=== PATIENT | female | born 1995 | race Caucasian/White ===

== ENCOUNTER 2020-12-10 10:50 | Inpatient (IN) | payer OTHER ==
[~2020-12-10] VITALS: Ht 167.6 cm; Wt 91.3 kg
[2020-12-11] VITALS (68 sets, daily range): BP systolic 99–111; BP diastolic 49–78; PULSE 118–125; TEMP 89.5–99; O2SAT 88–100
--- NOTE | 2020-12-11 09:35 | NUR ---
Initial visit; Patient thanked Extrusion Technician for looking in on her and offering comfort and prayer. Extrusion Technician will follow up.
[2020-12-11 23:04] LABS: CREATININE, serum 0.67 (0.52-1.25); POTASSIUM 3.6 mmol/L (3.4-5.0)
[2020-12-11 23:05] LABS: ALBUMIN 2.8 gm/dL (3.5-5.0); BILIRUBIN,TOTAL 1.6 mg/dL (0.0-1.0); MAGNESIUM 1.7 mg/dL (1.6-2.3); TOTAL PROTEIN 5.7 gm/dL (6.4-8.2)
--- NOTE | 2020-12-11 23:11 | NUR ---
Patient arrived around 2119. She had a temperature of 98.8, HR 131 and BP is 98/55, she complained of chest pain but said its because of gas. She stated she hasn't had a bowel movement in four/five days. I called Iva SHOE PATTERNMAKER and she ordered ducolax, IV fluids, EKG, Potassium and MAG.
[2020-12-11 23:14] LABS: AMYLASE 55 U/L (30-110); LIPASE 25 U/L (23-300)
[2020-12-11 23:26] LABS: INR 1.4 (0.8-3.0); PROTHROMBIN TIME 16.2 SECONDS (9.7-12.8)
[2020-12-11 23:31] LABS: TROPONIN-I < 0.012 ng/mL (0.000-0.035)
--- NOTE | 2020-12-11 23:50 | NUR ---
The Patient starting desating to the low 90's/89 and I put 1 L 02 Nasal cannula on. The same time Iva SAN came in the room to assess the patient. The patient complained of chest pains but she said she thinks its related to gas becasuse she hasn't had a bowel movement in 4-5 days. Iva CALHOUN suggested we do a CT of the abdomen and pelvis and a [address] was negative and showed "surgical changes" and perhaps a small ileus. I confirmed with Iva CALHOUN that if in the event I needed to give the patient any PO meds it would be a problem. She stated its fine with small sips of water. The 12 leak EKG was also unremarkable showing Sinus Tachycardia. We did a D-Dimer and Fibrinogen and the results were 3824 and 928, respectively. We did 40 MEq of Potassium and 2g of Magnesium.
[2020-12-12] VITALS (785 sets, daily range): BP systolic 88–129; BP diastolic 68–91; PULSE 110–139; TEMP 98.2–99.9; O2SAT 81–100
[2020-12-12 05:03] LABS: HEMATOCRIT 26.6 % (37.0-47.0); HEMOGLOBIN 8.1 g/dl (12.5-16.0); MEAN CELL VOLUME 82 fl (80.0-100.0); MEAN CORPUSCULAR HEMOGLOBIN 25 pg (27.0-31.0); MEAN CORPUSCULAR HGB CONC 31 g/dl (33.0-37.0); MEAN PLATELET VOLUME 8.6 fl (7.4-10.4); PLATELET COUNT 363 K/mm3 (130-400); RED BLOOD COUNT 3.25 M/mm3 (4.10-5.30); REDCELL DISTRIBUTION WIDTH-CV 14.9 % (11.5-14.5)
[2020-12-12 05:15] LABS: ALBUMIN 2.6 gm/dL (3.5-5.0); BILIRUBIN,TOTAL 1.7 mg/dL (0.0-1.0); CALCIUM 7.8 mg/dL (8.4-10.2); CREATININE, serum 0.69 (0.52-1.25); POTASSIUM 4.6 mmol/L (3.4-5.0); TOTAL PROTEIN 5.3 gm/dL (6.4-8.2)
--- NOTE | 2020-12-12 06:21 | NUR ---
The patient is resting and current vitals are HR 105, 02 Saturation is 99 on room air, RR is 14, and current blood pressure is 109/68. I gave her a percocet and a ducolax supository. She is passing gas but hasn't had a bowel movement yet. She states her pain is a 2 out of 10. This morning's Potassium is 4.6. The output from the DEXTER drain was 60. NS is still running at 150 ml/hr. The patient is sleeping.
[2020-12-12 07:52] LABS: PATHOLOGY DIFF REVIEW OK
[2020-12-12] MEDS ORDERED: PERCOCET 325 MG1 TA2 PO (07:55)
[2020-12-12] MEDS ORDERED: MIRALAX PA17 GM/Dose PO (08:03)
[2020-12-12] MEDS ORDERED: IBU800 M1 PO (08:04)
--- NOTE | 2020-12-12 08:57 | NUR ---
Assessment complete and charted. Patient rating pain 01/25. Percocet due at 0915. Per Dr. Beavers patient to ambulate this AM to help relief of gas pains. Patient denied needs at time of assessment. Call light in reach.
--- NOTE | 2020-12-12 09:39 | NUR ---
Follow-up; Patient resting, Glass Etcher left a prayer card for Nurse to take in to [facility] when she awakens.
--- NOTE | 2020-12-12 09:48 | NUR ---
Rated pain 5/10 in ABD. Passing flatus. Provided with PRN percocet.
--- NOTE | 2020-12-12 12:10 | NUR ---
Patient reporting 5/10 ABD pain. Requested PRN morphine. MARIA ANTONIA Yeager in room to place PICC. Proivded morphine to patient.
--- NOTE | 2020-12-12 13:06 | NUR ---
Primary Therapist met with patient to discuss discharge planning. Patient lives on [address] with her , David (ph#[phone]) and their three children ages eleven, six, and two. Patient receives primary care and her medications from [facility]. Patient does not use any DME and is independent with ADLS. Patient does not have Advance Directives and states she plans to return home upon discharge. SW will continue to follow.
[2020-12-12 14:55] LABS: ALBUMIN 3.2 gm/dL (3.5-5.0); BILIRUBIN,TOTAL 0.5 mg/dL (0.0-1.0); C-REACTIVE PROTEIN 25.5 mg/dL (0.0-0.9); CALCIUM 8.5 mg/dL (8.4-10.2); CREATININE, serum 0.79 (0.52-1.25); POTASSIUM 3.7 mmol/L (3.4-5.0); TOTAL PROTEIN 6.3 gm/dL (6.4-8.2)
--- NOTE | 2020-12-12 15:35 | NUR ---
Patient returned to bed at this time. Patient pulse 130s-140s. Patient voices concern/upset regarding current family fued. Reports /mother/sister fighting and constantly calling. Requested this nurse to give sister an update over phone. Patient called sister and update given to sister. Patient educated to rest and emotional support provided. Given pain medication for 6/10 ABD and left shoulder pains. Will closely monitor pulse and if continues to be elevated after relaxation/pain meds will notify physician.
--- NOTE | 2020-12-12 16:06 | NUR ---
Spoke with Dr. Thorpe regarding patient pulse currently 130s. Per Dr. Thorpe, okay with pulse currently. Notify if above 150.
--- NOTE | 2020-12-12 19:18 | NUR ---
Report given to MARIA ANTONIA Sanchez
--- NOTE | 2020-12-12 20:30 | NUR ---
Assessment complete; patient slightly drowsy but alert and oriented. Reports 5/10 sharp abdominal pain. Will administer PRN pain medication. Re-enforced education regarding use of insentive spirometer to help prevent pneumonia. Patient reports understanding. Call light left within reach; will continue to monitor.
--- NOTE | 2020-12-12 23:19 | NUR ---
Patient developed a temperature of 102.4. Dr. Long notified. Patient is close to upper limit of 24 hour acetaminophen dose. Received ok to give Tylenol at this time. Also reported that laboratory director recently called and reported blood cultures have grown gram positive cocci. farm operations technical director would call back when the organism has been isolated.
--- NOTE | 2020-12-12 23:59 | NUR ---
Blood cultures are growing gram postiive cocci; Currently on 1gm Ertapenam q24hr. Morena nurse notified; awaiting further orders.
[2020-12-13] VITALS (412 sets, daily range): BP systolic 107–122; BP diastolic 65–79; PULSE 104–145; TEMP 98.2–102.2; O2SAT 90–100
[2020-12-13 00:19] LABS: HEMOGLOBIN 8.7 g/dl (12.5-16.0); MEAN CORPUSCULAR HEMOGLOBIN 25 pg (27.0-31.0); RED BLOOD COUNT 3.43 M/mm3 (4.10-5.30)
[2020-12-13 00:20] LABS: HEMATOCRIT 27.7 % (37.0-47.0); MEAN CELL VOLUME 81 fl (80.0-100.0); MEAN CORPUSCULAR HGB CONC 31 g/dl (33.0-37.0); MEAN PLATELET VOLUME 8.6 fl (7.4-10.4); PLATELET COUNT 462 K/mm3 (130-400); REDCELL DISTRIBUTION WIDTH-CV 14.7 % (11.5-14.5)
[2020-12-13 00:20] LABS: HEMOGLOBIN 9.6 g/dl (12.5-16.0); MEAN CELL VOLUME 83 fl (80.0-100.0); MEAN CORPUSCULAR HEMOGLOBIN 26 pg (27.0-31.0); MEAN CORPUSCULAR HGB CONC 31 g/dl (33.0-37.0); RED BLOOD COUNT 3.75 M/mm3 (4.10-5.30)
[2020-12-13 00:21] LABS: MEAN PLATELET VOLUME 8.2 fl (7.4-10.4); PLATELET COUNT 476 K/mm3 (130-400); REDCELL DISTRIBUTION WIDTH-CV 14.9 % (11.5-14.5)
--- NOTE | 2020-12-13 04:20 | NUR ---
Patient reported feeling uncomfortable and sweaty. T. 98.4 orally. Patient was given motrin earlier in the shift for a temp of 102.2. Requested to sit up in recliner; up with 1 assist. Assisted with giving a bath and provided clean linens. Denies any need for pain medication at this time. Call light left within reach; will continue to monitor.
[2020-12-13 05:11] LABS: INR 1.3 (0.8-3.0); PROTHROMBIN TIME 15.1 SECONDS (9.7-12.8)
[2020-12-13 05:12] LABS: ALBUMIN 2.7 gm/dL (3.5-5.0); CALCIUM 7.9 mg/dL (8.4-10.2); CREATININE, serum 0.6 (0.52-1.25); POTASSIUM 3.9 mmol/L (3.4-5.0); TOTAL PROTEIN 5.6 gm/dL (6.4-8.2)
[2020-12-13 05:26] LABS: HEMOGLOBIN 7.6 g/dl (12.5-16.0); MEAN CORPUSCULAR HEMOGLOBIN 24 pg (27.0-31.0); RED BLOOD COUNT 3.15 M/mm3 (4.10-5.30)
[2020-12-13 05:27] LABS: HEMATOCRIT 25.8 % (37.0-47.0); MEAN CELL VOLUME 82 fl (80.0-100.0); MEAN CORPUSCULAR HGB CONC 30 g/dl (33.0-37.0)
[2020-12-13 05:28] LABS: GRAN % 84.3 % (42.2-75.2); LYMPH % 7.8 % (20.0-51.0); MEAN PLATELET VOLUME 8.3 fl (7.4-10.4); MONO % 4.8 % (1.7-9.3); PLATELET COUNT 352 K/mm3 (130-400); REDCELL DISTRIBUTION WIDTH-CV 15.3 % (11.5-14.5)
[2020-12-13 05:29] LABS: EOS % 2.4 % (0-4.0)
[2020-12-13 05:30] LABS: GRAN # 12.3 (1.4-6.5); LYMPH # 1.1 (1.2-3.4); MONO # 0.7 (0.1-0.6)
[2020-12-13 05:31] LABS: EOS # 0.4 (0.0-0.7)
--- NOTE | 2020-12-13 07:14 | NUR ---
Bedside report given to MARIA ANTONIA Mccain and MARIA ANTONIA Man. Patient care transfered.
--- NOTE | 2020-12-13 08:34 | NUR ---
SPOKE TO PATIENT'S REGARDING CURRENT PATIENT STATUS.
--- NOTE | 2020-12-13 08:39 | NUR ---
SPOKE TO DR SMITH REGARDING POST OP STATUS. ORDERS RECEIVED.
--- NOTE | 2020-12-13 09:50 | NUR ---
SPOKE TO DR ACOSTA REGARDING PATIENT'S GI STATUS. ORDERS RECEIVED.
--- NOTE | 2020-12-13 09:51 | NUR ---
Lure Maker attended clinical rounds with the team. Patient to transfer to the floor.
--- NOTE | 2020-12-13 13:43 | NUR ---
REPORT GIVEN TO MEDICAL PROFESSOR OF SOCIAL WORK FOR TRANSFER.
--- NOTE | 2020-12-13 14:25 | NUR ---
Successfully transferred patient and settled her in new room. Notified RN of arrival to unit.
--- NOTE | 2020-12-13 16:43 | NUR ---
PT TO ROOM 349 FROM ICU REPORT FROM LATIA EM.
--- NOTE | 2020-12-13 16:46 | NUR ---
PT C/O H/A AND TACHY, O2 SATS ANTWON 80'S TO LOW 90'S O2 @ 2 L PNC STARTED. MARI DUEÑAS WITH DR. JESUS NOTIFIED AND BOLUS OF FLUIDS STARTED AND NEW ORDERS RECIEVED.
--- NOTE | 2020-12-13 16:58 | NUR ---
PT IS A/O X3 PICC TO ROBERT WITH NS @125, NEW ORDER RECIEVED.
--- NOTE | 2020-12-13 17:32 | NUR ---
PT UP TO BR WITH ASIST. VOIDED CLEAR YELLOW URINE AND RETURNED TO BED. O2 SATS ON ROOM AIR 87%. O2 PLACED PNC 2L. 20 MLS SEROSANGUENIUS DRAINAGE REMOVED FROM DEXTER DRAIN.
--- NOTE | 2020-12-13 17:39 | NUR ---
UPDATED DR. JESUS ON PT STATUS NO NEW ORDERS.
--- NOTE | 2020-12-13 19:36 | NUR ---
PT HAVING FEVER 102.9. GIVEN TYLENOL 650MG PO AND IBUPROFEN 400MG PO AT THIS TIME. PT HAS DEXTER DRAIN TO RIGHT ABD, MINIMAL DRAINAGE IN BULB. HAS IVF TO RIGHT PICC, INFUSING WITHOUT PROBLEM. REPORTS NO BM FOR 6 DAYS. HAS SCHEDULED MEDS FOR CONSTIPATION.
--- NOTE | 2020-12-13 21:25 | NUR ---
HS MEDS GIVEN INCLUDING COLACE AND MIRALAX. PT STILL HAS FEVER 102.2.
--- NOTE | 2020-12-13 22:30 | NUR ---
PT UP TO BATHROOM, HAS MOD HARD STOOL. REPORTS FEELING BETTER.
[2020-12-14 00:32] VITALS: BP 103/67; PULSE 108; TEMP 98.2
--- NOTE | 2020-12-14 02:33 | NUR ---
MEDICATED WITH TYLENOL AND IBUPROFEN FOR PAIN TO DEXTER DRAIN SITE.
[2020-12-14 05:15] VITALS: BP 110/74; PULSE 100; TEMP 97.7
--- NOTE | 2020-12-14 06:00 | NUR ---
PT REPORTS FEELING BETTER.
[2020-12-14 07:26] VITALS: BP 108/77; PULSE 100; TEMP 97.9
--- NOTE | 2020-12-14 08:11 | NUR ---
Patient resting in bed. She has been on the phone. Labs drawn via Picc. Reports slight nausea. Zofran given. Reports pain /. Motrin & tylenol given. She reports her main complaint is being chilled. We discussed activity & hygiene, I really encouraged ambulating in the halls ways, she is agreeable after breakfast. Scds ble. Edema noted. Vss on room air.
[2020-12-14 08:57] LABS: BASO % 0.4 % (0.0-2.0); EOS # 0.3 (0.0-0.7); EOS % 2.7 % (0-4.0); GRAN # 7.8 (1.4-6.5); GRAN % 78.3 % (42.2-75.2); LYMPH % 9.9 % (20.0-51.0); MEAN CELL VOLUME 82 fl (80.0-100.0); MEAN CORPUSCULAR HGB CONC 31 g/dl (33.0-37.0); MEAN PLATELET VOLUME 8.9 fl (7.4-10.4); MONO # 0.8 (0.1-0.6); MONO % 7.8 % (1.7-9.3); PLATELET COUNT 354 K/mm3 (130-400); RED BLOOD COUNT 3.03 M/mm3 (4.10-5.30); REDCELL DISTRIBUTION WIDTH-CV 15.6 % (11.5-14.5)
[2020-12-14 09:07] LABS: HEMATOCRIT 24.7 % (37.0-47.0); HEMOGLOBIN 7.6 g/dl (12.5-16.0); MEAN CORPUSCULAR HEMOGLOBIN 25 pg (27.0-31.0)
--- NOTE | 2020-12-14 09:08 | NUR ---
Patient sitting up in chair. We ambulated the entire third floor, she is thankful to be out of bed. Dyspnea with exertion noted. She ate just a few bites of breakfast. She reports being hungry, but she not being able to eat much. I encouraged smaller more frequent meals. rounded, plan of care reviewed.
[2020-12-14 09:11] LABS: ALBUMIN 2.5 gm/dL (3.5-5.0); BILIRUBIN,TOTAL 0.5 mg/dL (0.0-1.0); CALCIUM 7.7 mg/dL (8.4-10.2); CREATININE, serum 0.56 (0.52-1.25); POTASSIUM 3.4 mmol/L (3.4-5.0); TOTAL PROTEIN 5.4 gm/dL (6.4-8.2)
--- NOTE | 2020-12-14 10:07 | NUR ---
Patient continues to sit up in the chair. Ua sent to lab. K+ per protocol.
[2020-12-14 10:14] LABS: MUCOUS Present /lpf; PH 5 (5-8); URINE APPEARANCE Hazy; URINE BACTERIA Rare /hpf; URINE BILIRUBIN Negative (NEGATIVE); URINE BLOOD 2+ (NEGATIVE); URINE COLOR Yellow; URINE GLUCOSE Negative (NEGATIVE); URINE KETONE Trace (NEGATIVE); URINE LEUKOCYTE ESTERASE 2+ (NEGATIVE); URINE NITRATE Negative (NEGATIVE); URINE PROTEIN(semi-quant) Negative (NEGATIVE); URINE UROBILINOGEN >=4.0 mg/dL (NEGATIVE)
[2020-12-14 10:17] LABS: COLLECTION METHOD CLEAN CATCH
--- NOTE | 2020-12-14 11:10 | NUR ---
Patient to Ct scan with Ngoc, will await her return
[2020-12-14 11:29] VITALS: BP 116/83; PULSE 102; TEMP 98.6
--- NOTE | 2020-12-14 11:49 | NUR ---
Patient has returned from Ct scan. rounded. Ivf decreased to 75 Ml/Hr. Doctor stripped Brent drain. This did elevavted Solo pain to RLQ. New dressing applied to Brent drain site, gauze 2x2 and tegaderm. Patient not interested in lunch, po intake encouraged. He supportive spouse at bedside. Will monitor.
--- NOTE | 2020-12-14 13:48 | NUR ---
Patient sitting up in chair. We ambulated the entire 3rd floor again & she did well, some dyspnea noted. She is using IS-denies questions on how to use. Patient tolerating lunch, she has had toast & some soup. Spoke again to Catherine Guerrero. Patient having concerns about her Edema-Picc to INT. IVF stopped. Probiotic started-patient is now having loose stools. Will continue to montior.
--- NOTE | 2020-12-14 14:34 | NUR ---
Patient up to the bathroom. having loose stools. Yogurt provided. Gatorade provided. Fresh mesh underwear & wipes provided.
--- NOTE | 2020-12-14 15:16 | NUR ---
Patient resting in bed. Warm blanket & Kpad provided for comfort. She reports abdominal cramping. Barrier cream provided for frequent loose stools. Will let her rest.
--- NOTE | 2020-12-14 16:46 | NUR ---
Patient up in the bathroom, continues to have loose stools. Report burning in her abdomen. Request Tums. Spoke to Allison with hospitalist & orders obtained. Will monitor.
[2020-12-14 17:01] VITALS: BP 95/80; PULSE 95; TEMP 97.4
--- NOTE | 2020-12-14 17:43 | NUR ---
Patient sitting up in chair, reports feeling a little better since tums. Attempting to eat dinner. Yogurt & pudding. Also going to try ensure.
[2020-12-14 19:54] VITALS: BP 111/63; PULSE 106; TEMP 98.1
--- NOTE | 2020-12-14 22:00 | NUR ---
AFTER INVANZ WAS DONE INFUSING PT STATED SHE HAS BEEN HAVING HEADACHES WITH A RINGING IN HER EARS DURING INFUSION AND AFTER.
--- NOTE | 2020-12-14 23:19 | NUR ---
PT JUST c/o PAIN IN LEGS BILATERALLY. SHE REPORTED IT PAIN WITH SOME TINGLING. LEGS HAVE SOME MILD EDEMA, 1+. GOOD PEDAL PULSES BILATERALLY. HER LOWER EXTREMITIES ARE NOT UNUSUALLY WARM OR COOL.
[2020-12-15 00:18] VITALS: BP 105/69; PULSE 93; TEMP 98.3
[2020-12-15 03:56] VITALS: BP 109/77; PULSE 95; TEMP 98.4
--- NOTE | 2020-12-15 05:33 | NUR ---
TOTAL OF ABOUT 45 mL FROM DEXTER, DRAINAGE LIGHT PINK IN COLOR. TYLENOL AND IBUPROFEN FOR PAIN TO ABDOMEN. PT HAS BEEN SLEEPING/RESTING MORE SINCE MIDNIGHT.
[2020-12-15 06:36] LABS: MEAN CELL VOLUME 81 fl (80.0-100.0); MEAN CORPUSCULAR HGB CONC 31 g/dl (33.0-37.0); MEAN PLATELET VOLUME 8.8 fl (7.4-10.4); PLATELET COUNT 356 K/mm3 (130-400); RED BLOOD COUNT 2.89 M/mm3 (4.10-5.30); REDCELL DISTRIBUTION WIDTH-CV 15.8 % (11.5-14.5)
[2020-12-15 06:41] LABS: HEMATOCRIT 23.4 % (37.0-47.0); HEMOGLOBIN 7.2 g/dl (12.5-16.0); MEAN CORPUSCULAR HEMOGLOBIN 25 pg (27.0-31.0)
[2020-12-15 06:50] LABS: ALBUMIN 2.4 gm/dL (3.5-5.0); BILIRUBIN,TOTAL 0.2 mg/dL (0.0-1.0); CALCIUM 8.1 mg/dL (8.4-10.2); CREATININE, serum 0.54 (0.52-1.25); POTASSIUM 3.6 mmol/L (3.4-5.0); TOTAL PROTEIN 5.1 gm/dL (6.4-8.2)
[2020-12-15 08:09] VITALS: BP 112/82; PULSE 91; TEMP 98.2
--- NOTE | 2020-12-15 08:23 | NUR ---
Pt sitting up in the chair. She states that her stomach is burning. Tums given. She also states that her back hurts, stomach hurts and pelvis. Legs feel heavy and tight. Some edema noted, no pitting. Told her that throughout the day she needs to try and walk at least every 2-3 hours. She nodded in agreement. Encouraged to get something ordered for breakfast which she stated she would. Call light within reach, will continue to monitor
[2020-12-15 12:10] VITALS: BP 110/75; PULSE 90; TEMP 98.2
--- NOTE | 2020-12-15 13:30 | NUR ---
Pt is voiding more since receiving the IV lasix. She states that her stomach feels like it is cramping. Encouraged her to try eating some toast which she just had delivered. Ibuprofen given at this time
--- NOTE | 2020-12-15 13:55 | NUR ---
SW was informed patient wanted to speak to SW about feelings of depression. RYLEE met with patient and patient states that she is highly concerned that physicans are not telling her the complete story in regards to her care. She is concerned that she may be sicker than she is and there is noone telling her the complete truth which is causing her to feel depressed and feel as though she needs to talk to someone. She provided that she is also worried about the care of her children due to her being at home alone with them. She does not feel as though they are in any danger, just that she stays at home with the kids normally usually does most of the care for them. She also stated that she had some concerns of staff members speaking negativley about her care when she was on "another floor". She states that she heard people whispering about her, but the staff members didn't think that she could hear them because they thought she was unconcious. Patient states that she wanted to speak to someone specifically about that concern. RYLEE informed House Nurse of patient's concerns of staff members as well as patient's concerns of wanting to know more about her current care and care plan SW also asked patient if she would like local resources to speak to someone about her feelings of depression. Patient stated that that information would be most helpful. SW provided local resource information. And patient stated that she would call soon when she was ready to do so. RYLEE will continue to follow.
--- NOTE | 2020-12-15 15:58 | NUR ---
Pt up ambulating in the halls, states that she feels better. No needs verbalized.
[2020-12-15 16:26] VITALS: BP 114/70; PULSE 103; TEMP 98.8
[2020-12-15 19:49] VITALS: BP 109/78; PULSE 93; TEMP 97.8
--- NOTE | 2020-12-15 23:56 | NUR ---
PT CONCERNED THAT THERE WAS A DROP OF BLOOD IN HER URINE. PT INFORMED TO NOTIFY STAFF IF IT CONTINUED OR INCREASED. PT c/o PAIN/BURNING IN ABDOMEN. TYLENOL, IBUPROFEN AND TUMS ADMIN. AT H.S.
[2020-12-16] VITALS (7 sets, daily range): BP systolic 97–119; BP diastolic 65–80; PULSE 85–105; TEMP 97.8–98.7
[2020-12-16 06:10] LABS: MEAN CELL VOLUME 80 fl (80.0-100.0); MEAN CORPUSCULAR HGB CONC 31 g/dl (33.0-37.0); MEAN PLATELET VOLUME 9.1 fl (7.4-10.4); PLATELET COUNT 445 K/mm3 (130-400); RED BLOOD COUNT 3.06 M/mm3 (4.10-5.30); REDCELL DISTRIBUTION WIDTH-CV 15.8 % (11.5-14.5)
[2020-12-16 06:20] LABS: HEMATOCRIT 24.6 % (37.0-47.0); HEMOGLOBIN 7.7 g/dl (12.5-16.0); MEAN CORPUSCULAR HEMOGLOBIN 25 pg (27.0-31.0)
[2020-12-16 06:33] LABS: CALCIUM 8.4 mg/dL (8.4-10.2); CREATININE, serum 0.65 (0.52-1.25); POTASSIUM 3.6 mmol/L (3.4-5.0)
--- NOTE | 2020-12-16 08:15 | NUR ---
Patient sitting up in chair. She had a light breakfast. Reports burning in her stomach. Prn pepto bismol per request. Brent drain to compression, straw colored output. abdomen distented. bowels audible. Edema noted. Voiding adequately. Will montior.
--- NOTE | 2020-12-16 11:55 | NUR ---
Patient resting in bed. Request pain medication. Medication per orders. She is not interested in lunch at this time. Will monitor.
--- NOTE | 2020-12-16 13:00 | NUR ---
Core Paster attended clinical rounds. Patient seen ambulating the hallways and SW will continue to follow.
--- NOTE | 2020-12-16 16:20 | NUR ---
Spoke to this afternoon. Orders to DC DEXTER drain. Patient tolerated removal. okayed patient to shower. Patient still having some pain post drain removal. Tyelnol & motrin per orders, refused percocet. We ambulated entire third floor & patient did well. Patient has been on the phone alot with her family today.
--- NOTE | 2020-12-16 20:11 | NUR ---
PATIENT IN POSITIVE SPIRITS. DENIES PAIN. ONLY COMPLAINT IS OF GERD. TUMS PROVIDED. we REVIEWED NEW ORDERS FOR po ANTIBIOOITCS. TOAST AND JUICE PROVIDED WITH PILLS. REPORT TO EDILSON WHO WILL RESUME CARES.
--- NOTE | 2020-12-16 21:40 | NUR ---
Pt. sitting up in bed. Pt. is A&OX3, assessment complete. PICC to rt. upperarm patent. Abd. lap incisions Well approximated. Dressing to RLQ where DEXTER drain was removed. Dressing is CDI. Pt. reports pain at a 4 on pain scale, gave Tylenol. Pt. denies further needs, Call light within reach.
[2020-12-17 04:00] VITALS: BP 102/66; PULSE 104; TEMP 98
[2020-12-17 07:00] VITALS: BP 95/58; PULSE 94; TEMP 97.4
--- NOTE | 2020-12-17 07:15 | NUR ---
vss. rates pain 3/10 in abd. region. Denies nausea, able to eat breakfast. Abd. Incisions x 2 intact. Dressing for DEXTER drain removal CDI.
[2020-12-17 07:17] LABS: MEAN CELL VOLUME 79 fl (80.0-100.0); MEAN CORPUSCULAR HGB CONC 31 g/dl (33.0-37.0); MEAN PLATELET VOLUME 8.8 fl (7.4-10.4); RED BLOOD COUNT 3.36 M/mm3 (4.10-5.30)
[2020-12-17 07:18] LABS: HEMATOCRIT 26.6 % (37.0-47.0); HEMOGLOBIN 8.3 g/dl (12.5-16.0); MEAN CORPUSCULAR HEMOGLOBIN 25 pg (27.0-31.0); PLATELET COUNT 553 K/mm3 (130-400)
[2020-12-17 07:33] LABS: CALCIUM 8.6 mg/dL (8.4-10.2); CREATININE, serum 0.67 (0.52-1.25); POTASSIUM 3.9 mmol/L (3.4-5.0)
--- NOTE | 2020-12-17 10:00 | NUR ---
Walked approx 500 [address]. around hallways, walked with steady gait. PRN Motrin for pain @ 0943. Pain has subsided. Laying in bed resting, waiting for Dr to see her to decide if she is being discharged.
--- NOTE | 2020-12-17 10:10 | NUR ---
Follow-up visit; Patient thanked Pie Baker for visiting again and for listening, offering encouragement to taked good care of herself and look to God for everything. Patient and Pie Baker shared prayer and God's blessings.
--- NOTE | 2020-12-17 11:00 | NUR ---
Patient has been doing well this morning. She had a student this morning that helped with her care. Patient has been up walking in the halls without issues. Denies pain. Motring given once by student nurse for pain. No complaints of nausea. No other changes at this time. Call [facility] within reach.
[2020-12-17 12:00] VITALS: BP 107/68; PULSE 97; TEMP 99
[2020-12-17] MEDS ORDERED: FLAGYL500 MG PO (13:52)
[2020-12-17] MEDS ORDERED: FERROUS SU325 MG/TAB PO (13:52)
[2020-12-17] MEDS ORDERED: CIPRO 500MG TA500 MG PO (13:52)
[2020-12-17] MEDS ORDERED: ZOFRAN 4MG T4 MG/TAB PO (13:54)
[2020-12-17] MEDS ORDERED: PERCOCET 325 MG1 TA2 PO (13:54)
--- NOTE | 2020-12-17 16:25 | NUR ---
Patient is discharging home. Discharge instructions discussed with patient. No questions verbalized. PICC line discontinued as ordered for discharge. Discussed dressing to her abdomen and when to removed. Patient has a prescription to take to pharmacy when she leaves. PICC line discontinued without issues. Pressure held to site, no bleeding. Gauze and tegaderm placed to PICC site. Copies of discharge instructions given to patient. She packed her belongings up. Patient walked out via wheel chair.
== END 2020-12-17 16:30 | disposition home or self-care (01) | DRG 856 ==
LOC: ICU 10:50 → SURG 10:50 → OB 10:50 → ICU 12-11 21:00 → SURG 12-13 14:30
PROVIDERS: Nurse Practitioner Family; Obstetrics & Gynecology; Physician Assistant; ADMIT Internal Medicine
PROC: 0W9J40Z Drainage of Pelvic Cavity with Drainage Device, Percutaneous Endoscopic Approach (ICD-10-PCS; 2020-12-11)
PROC: 0U904ZZ Drainage of Right Ovary, Percutaneous Endoscopic Approach (ICD-10-PCS; principal; 2020-12-11 11:00)
PROC: 0DNU4ZZ Release Omentum, Percutaneous Endoscopic Approach (ICD-10-PCS; 2020-12-11 11:00)
DX: T81.43XA Infection following a procedure, organ and space surgical site, initial encounter (principal); A41.9 Sepsis, unspecified organism; K65.1 Peritoneal abscess; J96.01 Acute respiratory failure with hypoxia; R65.20 Severe sepsis without septic shock; E87.1 Hypo-osmolality and hyponatremia; J90 Pleural effusion, not elsewhere classified; J98.11 Atelectasis; N73.8 Other specified female pelvic inflammatory diseases; T81.44XA Sepsis following a procedure, initial encounter; N83.201 Unspecified ovarian cyst, right side; E87.6 Hypokalemia; K66.0 Peritoneal adhesions (postprocedural) (postinfection); E83.42 Hypomagnesemia; K59.00 Constipation, unspecified; K21.9 Gastro-esophageal reflux disease without esophagitis; Z90.710 Acquired absence of both cervix and uterus
CPT/HCPCS: 99223; 99232-AI; 99233-AI; A4314; A9284; C1751; J0330; J0690; J1170; J1335; J1885; J1940; J2175; J2270; J2405; J2704; J2710; J3010; J3475; J3480; J7030; J7120; Q9967